=== PATIENT | female | born 1965 | race Caucasian/White ===

== ENCOUNTER → 2018-02-26 10:45 | Outpatient (CLI) | payer OTHER, SELFPAY ==
--- NOTE | 2018-02-26 10:48 | XR_ITS ---
XR hip RT 2-3V w/pelvis HISTORY: ITS.REASON: Hip pain ORDERING PHYSICIAN: Ciro Bernardo MD PATIENT AGE: 52 years COMPARISON: None FINDINGS: No fracture or dislocation is evident. There are minimal osteoarthritic changes of the right hip. No lytic or blastic change. IMPRESSION: Mild osteoarthritis of the right hip
== END ==
PROVIDERS: PCP Emergency Medicine; Visit Provider Emergency Medicine
DX: M25.551 Pain in right hip (principal); N39.0 Urinary tract infection, site not specified
CPT/HCPCS: 73502; 87086

== ENCOUNTER → 2018-03-10 10:07 | Outpatient (CLI) | payer OTHER, SELFPAY ==
[2018-03-10 14:03] VITALS: PULSE 93; PULSE 96
== END ==
PROVIDERS: PCP Emergency Medicine; Visit Provider Emergency Medicine
DX: J45.909 Unspecified asthma, uncomplicated (principal)
CPT/HCPCS: 94060; 94640

== ENCOUNTER → 2022-08-08 14:41 | Outpatient (CLI) | payer OTHER, SELFPAY ==
[2022-08-08 18:25] LABS: Basophils # 0.1 K/mm3 (0-0.2); Basophils % 0.7 % (0.1-2.0); Eosinophils # 0.8 K/mm3 (0.0-0.4); Eosinophils % 7.1 % (0.1-12.0); Hematocrit 47.4 % (37.0-47.0); Hemoglobin 14.4 g/dL (12.2-16.2); Lymphocytes # 2.5 K/mm3 (0.7-4.5); Lymphocytes % 22.2 % (10-50); Mean Corpuscular HGB Conc 30.3 g/dL (31.8-35.4); Mean Corpuscular Hemoglobin 29.1 pg (27.0-31.2); Mean Platelet Volume 9.7 fl (7.4-10.4); Monocytes # 0.5 K/mm3 (0.1-1.0); Monocytes % 4.1 % (1.7-9.3); Neutrophils # 7.4 K/mm3 (1.8-7.8); Neutrophils % 65.9 % (37.0-80.0); Platelet Count 342 K/mm3 (142-424); Red Blood Count 4.93 M/mm3 (4.20-5.40); Red Cell Distribution Width 13.8 % (11.5-17.5); White Blood Count 11.3 K/mm3 (4.8-10.8)
[2022-08-08 18:30] LABS: Alanine Aminotransferase 20 U/L (12-78); Albumin Level 4.5 g/dl (3.5-5.0); Albumin/Globulin Ratio 1.6 (1.1-1.8); Alkaline Phosphatase 95 U/L (38-126); Anion Gap 17.5 mEq/L (5-15); Aspartate Amino Transferase 28 U/L (14-36); Bilirubin,Total 0.4 mg/dl (0.2-1.3); Blood Urea Nitrogen 13 mg/dl (7-17); Calcium 9.4 mg/dl (8.4-10.2); Carbon Dioxide 30 mmol/L (22.0-30.0); Chloride 90 mmol/L (98-107); Chol/HDL Ratio 6.8 (1-3.5); Cholesterol 293 mg/dl (140-200); Estimated Glomerular Filt Rate 57 ml/min (>60); GFR (African American) 69 ML/MIN (>60); Globulin 2.8 g/dL (1.3-3.2); Glucose 120 mg/dl (74-100); HDL Cholesterol 43 mg/dl (40-60); Potassium 4.5 mmoL/L (3.5-5.1); Sodium 133 mmol/L (136-145); Total Protein,Serum 7.3 g/dl (6.3-8.2); Triglycerides 351 mg/dl (30-150); VLDL Cholesterol 70 mg/dL (0-40)
[2022-08-08 18:40] LABS: Direct LDL Cholesterol 155.73 mg/dL (100-129)
[2022-08-08 18:46] LABS: Free T4 (Free Thyroxine) 1.27 ng/dl (0.78-2.19)
[2022-08-08 18:48] LABS: 25-OH Vitamin D, Total < 12.8 ng/mL (30-100)
[2022-08-08 19:00] LABS: Thyroid Stimulating Hormone 1.78 uIU/mL (0.465-4.68)
== END ==
PROVIDERS: PCP Emergency Medicine; Visit Provider Emergency Medicine
DX: N39.0 Urinary tract infection, site not specified (principal); E55.9 Vitamin D deficiency, unspecified; E66.9 Obesity, unspecified; Z68.32 Body mass index [BMI] 32.0-32.9, adult
CPT/HCPCS: 80053; 80061; 82306; 84439; 84443; 85025; 87086

== ENCOUNTER → 2022-08-24 12:32 | Outpatient (CLI) | payer OTHER, SELFPAY ==
--- NOTE | 2022-08-24 | CA_ITS ---
APPROVED REPORT Exam: Pharmacologic Technologist: Britany Everett, Ht: 5 ft 4 in Wt: 192 lbs BSA: 1.92 m2 HR: 49 bpm BP: 124/66 mmHg Rhythm: Sinus bradycardia Medical History Medications: Amlodipine,,,,, Lisinopril,,,,, Pantoprazole,,,,, Atorvastatin,,,,, Albuterol,,,,, Cetrizine,,,,, BREo,,,,, CHlorALIDONE,,,,, BuPROPRION,,,,, Cardiac Risk Factors: HTN, Hyperlipidemia, Diabetes (non-insulin) Stress Test Details Test: LEXISCAN HR Resting HR: 49 bpm Max Heart Rate (APMHR): 164 bpm Max HR Achieved: 86 bpm Target HR (85% APMHR): 139 bpm % of APMHR: 52 Recovery HR: 69 bpm BP Max BP: 138/68 mmHg Recovery BP: 114.0/63.0 mmHg ECG Resting ECG: Sinus bradycardia, nonspecific diffuse T wave changes Stress ECG: No change Arrhythmia: None Recovery ECG: No change Recovery Arrhythmia: None Clinical Exercise duration: 04:10 min Highest Stage Achieved: Exercise capacity: n/a METs Stress ECG Conclusion During lexiscan pt experinced SOA, mild SANTANA. No CP noted. No arrhythmias noted. No significant ST changes with stress. Unremarkable lexiscan stress. Myoview images reported separately. Test Summary REST . . . . . . . Sitting REST . . . . . . . Sitting REST 07:41 . . 49 . . . . Stage 1 . . . . . . . Myoview Injected Stage 1 01:00 . . 81 . . . . Stage 2 01:00 . . 79 . 122/ 77 . . Stage 3 01:00 . . 77 . 138/ 68 . . Stage 4 01:00 . . 74 . 133/ 62 . . Stage 4 01:10 . . 77 . 133/ 62 . Stop exercise at 04:10 RECOVERY 01:00 . . 69 . . . . RECOVERY 02:00 . . 68 . 114/ 63 . . RECOVERY 03:00 . . 65 . 114/ 63 . . RECOVERY 04:00 . . 71 . 127/ 75 . . RECOVERY 04:24 . . 64 . 127/ 75 . . Electronically signed by : Bethanie Jc, 08/27/2022 00:54:24
--- NOTE | 2022-08-24 12:32 | NM_ITS ---
APPROVED REPORT Exam: Nuclear Stress Test Indication: CAD, 2 STENTS, H/O [place], HTN, HYPERLIPIDEMIA, TOB USE, FM HX., SOB, FATIGUE Patient Location: Outpatient Stress Tech: Jeanette Everett NM Tech:Melly Levy, LYNNETTE RT(R)(N) Ht: 5 ft 4 in Wt: 190 lbs Bra Size: 38C HR: 49 bpm BP: 122/77 mmHg BSA: 1.91 m2 TID: 0.96 BMI: 32.6 History: CAD, 2 STENTS, H/O [place], HTN, HYPERLIPIDEMIA, TOB USE, FM HX., SOB, FATIGUE PT COULD NOT LAY ON STOMACH FOR PRONE IMAGES DUE TO A PRIOR STROKE. Procedure: Patient received 0.0 mg of intravenous Lexiscan, resting heart rate 49 bpm, resting blood pressure 122/77 mmHg, with Lexiscan maximum heart rate achieved was 81 bpm which is % of the maximum predicted heart rate and blood pressure was 138/68 mmHg. With Lexiscan, patient denied any complaint of chest pain. Cardiac Stress and Resting SPECT Images: Cardiac Stress and Resting SPECT images were obtained using technetium 99m Myoview 31.9 mCi stress and 10.25 mCi at rest. The study is technically difficult due to soft tissue overlying the cardiac border on the raw images. Also, the patient was not able to lie on her abdomen for prone imaging. Therefore prone stress imaging could not be obtained. This may affect the diagnostic interpretation of the study findings. Resting and stress imaging in supine position demonstrate medium sized, mild, fixed perfusion defect in the basal to mid anterior wall. In the setting of normal regional wall motion and overlying soft tissue in the raw images, this most likely represents soft tissue attenuation. However, a true perfusion defect cannot be entirely ruled out. Gated imaging demonstrates normal global and regional LV systolic function. LVEF is calculated at 64%. Conclusion: The study is technically difficult due to soft tissue overlying the cardiac border on the raw images. Also, the patient was not able to lie on her abdomen for prone imaging. Therefore prone stress imaging could not be obtained. This may affect the diagnostic interpretation of the study findings. Resting and stress imaging in supine position demonstrate medium sized, mild, fixed perfusion defect in the basal to mid anterior wall. In the setting of normal regional wall motion and overlying soft tissue in the raw images, this most likely represents soft tissue attenuation. However, a true perfusion defect cannot be entirely ruled out. Gated imaging demonstrates normal global and regional LV systolic function. LVEF is calculated at 64%. Electronically signed by : Bethanie Jc, 08/27/2022 01:05:07
--- NOTE | 2022-08-24 15:26 | MR_ITS ---
FINAL REPORT CLINICAL HISTORY: neck pain. LEFT ARM NUMBNESS AND TINGLING. HEADACHE COMPARISON: None FINDINGS: Multiplanar MR imaging of the cervical spine was performed without contrast. On the sagittal T2-weighted images, disc degeneration is seen throughout. There is no evidence of fracture. The vertebral alignment is normal. The cervical spinal cord has an unremarkable appearance without evidence of mass, edema or syrinx. The cervicomedullary junction is normal. C2-3: Uncovertebral osteophytes. There is no significant canal stenosis or neural foraminal narrowing. C3-4: Uncovertebral osteophytes. Mild right neuroforaminal narrowing. C4-5: Annular disc bulge. Moderate right neuroforaminal narrowing. C5-6: Annular disc bulge. Mild bilateral neuroforaminal narrowing. C6-7: Annular disc bulge. Moderate right and mild left neuroforaminal narrowing. C7-T1: There is no significant canal stenosis or neural foraminal narrowing. IMPRESSION: Multilevel degenerative disc disease as described. Reviewed, Interpreted and Dictated by Ascencion Griffith III, MD Transcribed by Nikky Montemayor Authenticated and [facility]
== END ==
LOC: RAD 12:32
PROVIDERS: PCP Emergency Medicine; Visit Provider Nurse Practitioner Family
DX: R06.09 Other forms of dyspnea (principal); R01.1 Cardiac murmur, unspecified; M54.2 Cervicalgia; I25.10 Atherosclerotic heart disease of native coronary artery without angina pectoris; I10 Essential (primary) hypertension; E66.9 Obesity, unspecified; E78.5 Hyperlipidemia, unspecified; I63.9 Cerebral infarction, unspecified; Z72.0 Tobacco use; Z68.32 Body mass index [BMI] 32.0-32.9, adult
CPT/HCPCS: 72141; 76376; 78452; 93017; 93306; A9502; J2785

== ENCOUNTER → 2022-09-05 13:30 | Outpatient (CLI) | payer OTHER, SELFPAY ==
[2022-09-05 17:05] LABS: Chloride 103 mmol/L (98-107)
[2022-09-05 17:06] LABS: Potassium 4.1 mmoL/L (3.5-5.1); Sodium 140 mmol/L (136-145)
[2022-09-05 17:09] LABS: Anion Gap 7.1 mEq/L (5-15); Blood Urea Nitrogen 8 mg/dl (7-17); Carbon Dioxide 34 mmol/L (22.0-30.0); Estimated Glomerular Filt Rate 65 ml/min (>60); GFR (African American) 78 ML/MIN (>60); Glucose 94 mg/dl (74-100)
== END ==
PROVIDERS: Nurse Practitioner; PCP Emergency Medicine; Visit Provider Emergency Medicine
DX: R06.09 Other forms of dyspnea (principal); I25.10 Atherosclerotic heart disease of native coronary artery without angina pectoris; I63.9 Cerebral infarction, unspecified; R82.90 Unspecified abnormal findings in urine; B96.29 Other Escherichia coli [E. coli] as the cause of diseases classified elsewhere; E66.9 Obesity, unspecified; Z68.34 Body mass index [BMI] 34.0-34.9, adult; Z72.0 Tobacco use
CPT/HCPCS: 36415; 80048; 87086; 87088; 87186

== ENCOUNTER → 2022-09-14 09:30 | Outpatient (CLI) | payer OTHER, SELFPAY ==
--- NOTE | 2022-09-14 09:35 | XR_ITS ---
FINAL REPORT TECHNIQUE: Bone mineral density was calculated of the lumbar spine and hip. CLINICAL HISTORY: . osteophytes in lumbar area FINDINGS: Using L1-4, the bone mineral density of the spine is 1.019 g/cm2, corresponding to T-score of -0.3, likely falsely elevated secondary to hypertrophic changes. Using the left hip, the bone mineral density of the femoral neck is 0.743 g/cm2, corresponding to a T-score of -1.0. Using the right hip, the bone mineral density of the femoral neck is 0.696 g/cm2, corresponding to a T-score of -1.4. NOTE: T-score: Standard deviation compared with peak bone mass of young adult mean. *Following the recommendations of the International Society of Bone densitometry, classification of hip BMD is based on the lower of two T-scores; total hip or femoral neck. IMPRESSION: Diminished bone mineral density consistent with low bone density. FRAX was not reported because patient is being treated for osteoporosis. Reviewed, Interpreted and Dictated by Ascencion Griffith III, MD Transcribed by Radha Medina Authenticated and [facility]
== END ==
PROVIDERS: PCP Emergency Medicine; Visit Provider Physician Assistant
DX: M25.78 Osteophyte, vertebrae (principal); M51.36 Other intervertebral disc degeneration, lumbar region
CPT/HCPCS: 77080

== ENCOUNTER → 2022-09-19 10:04 | Outpatient (CLI) | payer OTHER, SELFPAY ==
[2022-09-19 10:55] VITALS: PULSE 64; PULSE 69
--- NOTE | 2022-09-19 13:55 | XR_ITS ---
FINAL REPORT CLINICAL HISTORY: LBP FINDINGS: LUMBAR SPINE Five views demonstrate no acute fracture. There are mild degenerative changes. There is mild anterolisthesis of L4 on 5. Moderate vascular calcification is identified. IMPRESSION: Degenerative changes as detailed above. Reviewed, Interpreted and Dictated by Ascencion Griffith III, MD Transcribed by Radha Medina Authenticated and [facility]
== END ==
PROVIDERS: PCP Emergency Medicine; Visit Provider Internal Medicine Pulmonary Disease
DX: R06.02 Shortness of breath (principal); M54.50 Low back pain, unspecified
CPT/HCPCS: 72110; 94060; 94618; 94640; 94727; 94729

== ENCOUNTER → 2022-09-19 13:00 | Outpatient (POV) | payer OTHER, SELFPAY ==
[2022-09-19 13:08] VITALS: BP 158/77; PULSE 74; RESP 20; BMI 36.3
--- NOTE | 2022-09-19 14:44 | EXP.PAIN.OV ---
HPI Data of Consult Patient: new to practice Consult date: 09/19/22 Requesting Physician: Vee Ojeda APRN Consult Narrative Reason for consult: Low back pain with lower extremity pain, neck pain with upper extremity markus History of present illness: Ms. Nolen is a 56 year old female who presents today as a new patient. She is a referral from Dr. Bernardo's office. Today she rates her pain a 0 out of 10. She does state this is while she is in a seated position but the pain does go up to a 6 or 7 when she is up moving around and as the day goes on. Patient states her pain is all in her low back and legs as well as chronic pain in her neck and upper extremities. Patient does describe her pain as a aching sensation with sharp shooting pains that is worse with increased activity. Patient does state that her low back pain has been going on for at least 8 months and is unrelated to any specific injury or trauma. She does state that her low back pain and leg pain is more bothersome than her neck pain. She states it does interfere with her ability to perform activities of daily living such as cooking and cleaning. Patient states she has tried [id number] medications such as Tylenol and ibuprofen along with heat and ice and topicals with minimal relief. Patient denies any previous physical therapy or chiropractor. Patient has been seen in pain management in [place] years ago and that the injections did help. Patient does state that she does have a history of drug abuse and is currently in a drug rehab program and is on methadone. Patient is not on any scheduled medications. Patient has had recent MRI imaging of her cervical spine however she denies any other imaging of her low back. Her Herbert is [phone]. It has been reviewed and appropriate. CC: Vee Ojeda APRN [facility] Disclaimer: The information contained in this section may have been updated after the patient was seen, as this information can be updated by other users. Medical History COPD mixed type DDD (degenerative disc disease), lumbar Dyspnea on exertion Encounter for screening for malignant neoplasm of lung Smoking greater than 30 pack years Surgical History History of heart artery stent History of surgery on lower extremity Family History Other Diabetes Hypertension Social History (Updated 09/19/22 @ 13:57 by Rachel Rahman RN) Smoking Status: Current every day smoker tobacco type: cigarettes packs per day: 1 alcohol intake: current substance use type: denies use current occupational status: disabled Travel in the last 8 weeks: None Review of Systems Review of Systems Review of systems:: pertinent systems reviewed and negative unless documented below Review of systems (narrative): Review of Systems: General: No recent weight changes, no fever, no sleep disturbances Respiratory: No cough, no shortness of air, no recurring pulmonary infections Cardiovascular/peripheral vascular: No chest pain, no palpitations, no edema, no shortness of breath Gastrointestinal: No new onset incontinence, normal bowel movements reported Genitourinary: No new onset incontinence Musculoskeletal: Low back pain, bilateral lower extremity pain, neck pain, bilateral arm pain Psychiatric: [Normal mood/affect] Neurological: [Denies weakness in extremities], [denies balance issues] Meds Home Medications and Allergies Home Medications Medication Instructions Recorded Confirmed Type fluticasone furoate 100 See Rx Instructions .Route 10/09/19 09/05/22 Rx mcg-vilanterol 25 mcg/dose .COMPLEX ##60 inhalation powder (Breo Ellipta) amlodipine 5 mg tablet 5 mg PO DAILY 07/04/22 09/05/22 History atorvastatin 80 mg tablet 80 mg PO HS 07/04/22 09/05/22 History bupropion HCl 150 mg tablet,12 hr 150 mg PO BID #60 ea 07/04/22 09/05/22 Rx sustained-release ce
== END ==
PROVIDERS: Visit Provider Nurse Practitioner Family
DX: M50.10 Cervical disc disorder with radiculopathy, unspecified cervical region (principal); M54.16 Radiculopathy, lumbar region; M54.50 Low back pain, unspecified; G89.29 Other chronic pain
CPT/HCPCS: 99202; G0463

== ENCOUNTER → 2022-10-04 15:27 | Outpatient (CLI) | payer OTHER, SELFPAY ==
--- NOTE | 2022-10-04 16:03 | MR_ITS ---
PROCEDURE INFORMATION: Exam: MR Lumbar Spine Without Contrast Exam date and time: 10/04/2022 4:00 PM Age: 56 years old Clinical indication: Low back pain; Additional info: Low back pain. Bilateral leg pain, numbness and tingling. Right sided low back pain TECHNIQUE: Imaging protocol: Magnetic resonance imaging of the lumbar spine without contrast. COMPARISON: CR XR LUMBAR SPINE MIN 4V 09/19/2022 1:57 PM FINDINGS: Bones/joints: Minimal anterolisthesis L4 on L5 measuring 2 mm is unchanged with otherwise near anatomic alignment. The vertebral body heights are maintained there are multiple Schmorl's nodes present in the lower thoracic and lumbar spine without significant loss of height. No suspicious marrow signal. Spinal cord: Visualized cord, conus medullaris and cauda equina are unremarkable without compression. T11-T12: T11-12 minimal diffuse disc bulging is seen with mild stenosis of the spinal canal on the sagittal images only. L1-L2: No significant disc bulge or herniation. No severe spinal canal stenosis. No significant neural foraminal narrowing. L2-L3: L2-L3 mild saddle shaped disc bulging is present with patent spinal canal. The neural foramina are mildly narrowed on both sides. L3-L4: L3-L4 mild saddle shaped disc bulging is seen without stenosis of the spinal canal. There is mild narrowing of both neural foramina present. L4-L5: L4-L5 diffuse disc bulging and degenerative facet arthrosis is present with mild stenosis of the spinal canal. There is moderate left and mild right neural foraminal narrowing also present. L5-S1: L5-S1 minimal diffuse disc bulging eccentric to the right is present without stenosis of the spinal canal. There is degenerative facet arthrosis with mild narrowing of the left neural foramen. Soft tissues: Unremarkable. Kidneys and ureters: Simple cyst upper pole left kidney measuring 1.0 cm. IMPRESSION: Multilevel degenerative disc disease with mild stenosis of the spinal canal at L4-L5, as described.
[2022-10-04 18:16] LABS: Vitamin B12 272 pg/mL (239-931)
[2022-10-04 18:31] LABS: Hemoglobin A1C 5.8 % (4.0-6.0)
== END ==
LOC: RAD 15:28
PROVIDERS: Nurse Practitioner Family; PCP Emergency Medicine; Visit Provider Nurse Practitioner Family
DX: M54.50 Low back pain, unspecified (principal); I25.10 Atherosclerotic heart disease of native coronary artery without angina pectoris; I25.2 Old myocardial infarction; I10 Essential (primary) hypertension; E78.5 Hyperlipidemia, unspecified; E66.9 Obesity, unspecified; R53.83 Other fatigue; R73.9 Hyperglycemia, unspecified; Z72.0 Tobacco use; Z68.35 Body mass index [BMI] 35.0-35.9, adult
CPT/HCPCS: 36415; 72148; 76376; 82607; 82746; 83036; 93270

== ENCOUNTER → 2022-10-08 13:20 | Outpatient (CLI) | payer OTHER, SELFPAY ==
[2022-10-17 08:20] LABS: Methylmalonic Acid 265 nmol/L (0-378)
== END ==
PROVIDERS: PCP Emergency Medicine; Visit Provider Nurse Practitioner Family
DX: E53.8 Deficiency of other specified B group vitamins (principal); R53.83 Other fatigue
CPT/HCPCS: 36415; 83090; 83921

== ENCOUNTER → 2022-10-11 13:32 | Outpatient (CLI) | payer OTHER, SELFPAY ==
[2022-10-11 14:04] LABS: Blood Urea Nitrogen 11 mg/dl (7-17); Estimated Glomerular Filt Rate 57 ml/min (>60); GFR (African American) 69 ML/MIN (>60)
--- NOTE | 2022-10-11 14:48 | MR_ITS ---
FINAL REPORT CLINICAL HISTORY: carotid artery stenosis COMPARISON: None FINDINGS: Multiple projection images of the neck arterial vasculature were obtained without contrast. The raw data images were also reviewed. The right common carotid artery has an unremarkable appearance without evidence of stenosis or occlusion. The right internal carotid artery has an unremarkable appearance without evidence of stenosis or occlusion. The right external carotid artery is patent. The right vertebral artery is patent without evidence of stenosis. The right vertebral artery is the dominant artery in the posterior circulation. The left common carotid artery has an unremarkable appearance without evidence of stenosis or occlusion. The left internal carotid artery is patent without evidence of stenosis or occlusion. The left external carotid artery is patent. The left vertebral artery is patent but diminutive. IMPRESSION: Unremarkable MR angiogram of the neck without evidence of stenosis or occlusion. Reviewed, Interpreted and Dictated by José Waggoner MD Transcribed by Raisa Sanches Authenticated and [facility]
--- NOTE | 2022-10-11 14:48 | MR_ITS ---
FINAL REPORT CLINICAL HISTORY: dizziness,confusion 17 ml prohance COMPARISON: None FINDINGS: Multiplanar MR imaging of the brain was performed without and with contrast. There is encephalomalacia in the right posterior parietal region, likely secondary to prior ischemic infarct. No enhancement or mass is identified. There are areas of increased signal in the periventricular white matter, compatible with ischemic microvascular change. There is no evidence of intracranial hemorrhage or mass. No abnormal extra-axial fluid collection is seen. The ventricular size is within normal limits. There is no evidence of shift of the midline structures. The posterior fossa and brainstem have an unremarkable appearance. No area of abnormal restricted diffusion is identified. No abnormal contrast enhancement is seen. Normal major vessel vascular flow voids are noted. IMPRESSION: Encephalomalacia in the right posterior parietal region, likely secondary to a prior ischemic infarct. Changes compatible with mild to moderate ischemic microvascular disease. Reviewed, Interpreted and Dictated by José Waggoner MD Transcribed by Raisa Sanches Authenticated and . [facility]
--- NOTE | 2022-10-11 14:48 | MR_ITS ---
FINAL REPORT CLINICAL HISTORY: carotid artery stenosis COMPARISON: None FINDINGS: Multiple projection images of the brain arterial vasculature were obtained without contrast. raw data images were also reviewed. The internal carotid arteries are patent. The middle cerebral arteries and visualized proximal branches are patent. The anterior cerebral arteries are patent. The intracranial vertebral arteries are patent. The basilar artery is patent. The posterior cerebral arteries are patent. Note is made of a diminutive left vertebral artery and a dominant right vertebral artery. IMPRESSION: No major vessel occlusion. Reviewed, Interpreted and Dictated by José Waggoner MD Transcribed by Raisa Sanches Authenticated and [facility]
== END ==
LOC: RAD 13:33
PROVIDERS: PCP Emergency Medicine; Visit Provider Nurse Practitioner Family
DX: I25.10 Atherosclerotic heart disease of native coronary artery without angina pectoris (principal); I10 Essential (primary) hypertension; I25.2 Old myocardial infarction; I63.9 Cerebral infarction, unspecified; R73.9 Hyperglycemia, unspecified; E78.5 Hyperlipidemia, unspecified; R53.83 Other fatigue; I65.23 Occlusion and stenosis of bilateral carotid arteries; G47.8 Other sleep disorders; R06.83 Snoring; E66.9 Obesity, unspecified; Z68.35 Body mass index [BMI] 35.0-35.9, adult; Z72.0 Tobacco use
CPT/HCPCS: 36415; 70544; 70547; 70553; 82565; 84520; A9576

== ENCOUNTER → 2022-10-26 08:48 | Outpatient (CLI) | payer OTHER, SELFPAY ==
--- NOTE | 2022-10-26 08:48 | FL_ITS ---
FINAL REPORT CLINICAL HISTORY: breathing problems DAP 342.23 Fluoro time 0.49 FINDINGS: SNIFF TEST HISTORY: Shortness of breath, diaphragm weakness, nicotine user. PROCEDURE: Fluoroscopy was utilized to observe the motion of the hemidiaphragms during normal respirations and while the patient was sniffing. FINDINGS: There is normal motion of both hemidiaphragms. There is no paradoxical movement of either side of the diaphragm. A total of 5 cine runs were saved. FLUOROSCOPY TIME: 0.49 minutes FLUORO DOSE: 342.23 DAP in uGym2 IMPRESSION: No paradoxical movement of the diaphragm. Reviewed, Interpreted and Dictated by Ascencion Griffith III, MD Transcribed by Catherine Ramírez PA-C Authenticated and [facility]
--- NOTE | 2022-10-26 08:48 | CT_ITS ---
FINAL REPORT TECHNIQUE: Axial images were obtained from the lung apex to the mid abdomen by computed tomography. This study was performed with techniques to keep radiation doses as low as reasonably achievable (ALARA). Individualized dose reduction techniques using automated exposure control or adjustment of mA and/or kV according to the patient's size were employed. CLINICAL HISTORY: lung cancer screening smokes 1/2 pk per day x 35 yrs empysema family hx of lung ca FINDINGS: CHEST CT LOW DOSE CTDI vol (mGy): 2.90 DLP (mGy-cm): 108.64 There is severe coronary artery calcification. There is no axillary adenopathy. There is no hilar or mediastinal adenopathy. The heart is normal in size. There is no pericardial or pleural effusion. There are several calcified granulomas. There is a 3 mm left lower lobe nodule well seen on image 47. Limited images of the upper abdomen are unremarkable. IMPRESSION: Left lower lobe nodule. Severe coronary artery calcification. Lung RADS category 2S. Recommend 12 month follow-up low-dose chest CT. Reviewed, Interpreted and Dictated by Ascencion Griffith III, MD Transcribed by Radha Medina Authenticated and [facility]
== END ==
PROVIDERS: PCP Emergency Medicine; Visit Provider Internal Medicine Pulmonary Disease
DX: J98.6 Disorders of diaphragm (principal); F17.210 Nicotine dependence, cigarettes, uncomplicated
CPT/HCPCS: 71271; 76000

== ENCOUNTER → 2023-01-09 13:08 | Outpatient (POV) | payer OTHER, SELFPAY ==
[2023-01-09 13:21] VITALS: BP 131/79; PULSE 70; RESP 18; O2SAT 96; BMI 35.3
--- NOTE | 2023-01-09 13:23 | EXP.PAIN.SOA ---
[facility] Pain Management SOAP Note Subjective:: Patient is a pleasant 57-year-old female who presents today for follow-up. We are currently treating the patient for degenerative disc disease of cervical and lumbar spine with cervical and lumbar radiculopathy symptoms, cervical and lumbar arthropathy. Today she rates her pain a 5 out of 10. Patient denies any new trauma or injury from her last visit. Patient states that she continues to have neck and low back pain with radiating symptoms. She states the low back is more bothersome than the neck pain. She does describe this as an aching, throbbing sensation with sharp shooting pains. She states the pain interferes with her ability perform activities of daily living such as cooking and cleaning. At our last visit we did discuss scheduling her for a lumbar epidural however she did not proceed forward with the injection at that time. Patient would like to do this now. Patient has tried and failed conservative therapy such as oral medication, heat and ice, topicals, at home exercising and stretching for longer than 12 weeks. Patient does state from our last visit her vascular Dr. Lincoln in [place] did start her on Eliquis daily. Her Herbert has been reviewed and is appropriate. Review of Systems: General: No recent weight changes, no fever, no sleep disturbances Respiratory: No cough, no shortness of air, no recurring pulmonary infections Cardiovascular/peripheral vascular: No chest pain, no palpitations, no edema, no shortness of breath Gastrointestinal: No new onset incontinence, normal bowel movements reported Genitourinary: No new onset incontinence Musculoskeletal: Low back pain, leg pain Psychiatric: [Normal mood/affect] Neurological: [Denies weakness in extremities], [denies balance issues] Objective:: Physical Exam: General: Alert and oriented x3, no acute distress, pleasant and cooperative Lungs: Respirations even and unlabored, symmetrical chest expansion Eyes: PERRL Musculoskeletal: Flexion and extension of lumbar [spine] somewhat guarded secondary to pain, [antalgic gait noted] Neurological: Speech clear, no gross sensory deficit Lumbar MRI without contrast 07/03/2022 Findings: Multiplanar MR imaging of the lumbar spine was performed without contrast. On sagittal T2 weighted images, disc degeneration is seen multiple levels. There is mild anterior listhesis of L4 on L5. Schmorl's nodes are seen at multiple levels. There is no evidence of fracture. No bony mass is identified. The conus is unremarkable appearance. T12-L1: Unremarkable. L1-L2: An annular bulge is present no significant canal or foraminal narrowing is identified. L 2 through L3: An annular bulge is present. There is mild facet arthropathy. Mild bilateral neuroforaminal narrowing is seen. L3-L4: An annular bulge is present. There is mild facet arthropathy. Moderate right and mild left neuroforaminal narrowing is seen. L4-L5: An annular bulge is present. A broad-based left paracentral disc protrusion mildly indents the thecal sac and may cause left L5 nerve root impingement. There is bilateral facet arthropathy. Moderate bilateral neuroforaminal narrowing is seen. L5-S1: An annular bulge is present. There is mild facet arthropathy. Mild bilateral neuroforaminal narrowing is seen. Assessment:: Degenerative disc disease of cervical and lumbar spine with cervical and lumbar radiculopathy symptoms, cervical and lumbar arthropathy Plan:: Patient continues to experience significant pain in her low back with radiating symptoms into her lower extremities. I have discussed with the patient that she may benefit from a lumbar epidural steroid injection. Risk and benefits were discussed with the patient and she would like to proceed forward with this plan of care. Patient is currently on blood thinners and we will contact her provider to confirm she can stop this medication temporarily prior to her procedure date. Patient will be schedu
== END ==
PROVIDERS: PCP Emergency Medicine; Visit Provider Nurse Practitioner Family
DX: M50.10 Cervical disc disorder with radiculopathy, unspecified cervical region (principal); M47.22 Other spondylosis with radiculopathy, cervical region; M51.16 Intervertebral disc disorders with radiculopathy, lumbar region; M47.26 Other spondylosis with radiculopathy, lumbar region
CPT/HCPCS: 99212; G0463

== ENCOUNTER 2023-02-19 08:13 | Day surgery (SDC) | payer OTHER, SELFPAY ==
[2023-02-19] VITALS (15 sets, daily range): BP systolic 120–177; BP diastolic 65–100; PULSE 52–84; RESP 16–18; TEMP 36.6; O2SAT 90–99; BMI 35.1
--- NOTE | 2023-02-19 08:26 | IR_ITS ---
APPROVED REPORT Patient Location: Outpatient PROCEDURES Selective coronary angiogram Drug-eluting stent deployment to the ostial proximal mid and distal dominant right coronary artery in a contiguous manner with 4 drug-eluting stents INDICATION Coronary artery disease, Abnormal Myoview, Accelerated angina pectoris Informed consent was obtained prior to the procedure. COMPLICATIONS NONE Estimated Blood Loss: LESS THAN 10 ML TECHNIQUE One percent lidocaine used to anesthetize the right anterior aspect of the wrist. The right radial artery was accessed via the Seldinger technique. A 6 [place] sheath was placed in the right radial artery. 2.5 mg of Verapamil, 800 mcg of nitroglycerin, 1mg Lidocaine and 5000 U Heparin were given through the arterial sheath. The papa catheter was also used to perform left heart catheterization, left ventriculogram and selective coronary angiogram. At the end the diagnostic angiogram therapeutic heparin was administered giving a therapeutic ACT and the guide catheter was placed in the right coronary artery followed by Choice PT extra-support wire. Two 3 mm x 38 mm [place] frontier stents were placed in the proximal mid and distal segment in a contiguous manner and deployed at 20 clem.. An additional 3 mm x 15 mm [place] frontier stent was placed distal to the last stent yet still overlapping it and deployed at 14 clem. The distal portion of the 15 mm stent ended just prior to the posterior descending artery and posterior lateral branch. This balloon was pulled back and deployed at 20 clem to mesh the distal 38 mm stent with the 15 mm stent. Following this an additional 3 mm x 12 mm [place] frontier stent was placed in the ostial segment of the right coronary artery as the pressure continued to dampen each time the guide catheter approach to the ostium indicating a severe stenosis. The 12 mm stent was deployed in the ostial segment which overlapped the proximal portion of the first 3 x 38 mm stent. This was deployed at 24 clem. Upon delivery of the last ostial stent all dampening resolved. ALONSO-3 flow was present before and after the procedure. At the end the procedure the apparatus was removed the sheath was removed good hemostasis was achieved using TR banding patient was transferred to the postop holding in stable condition ANGIOGRAPHIC RESULTS The left main artery Normal The left anterior descending artery Is proximally normal with mid vessel diffuse 10% stenoses throughout. The circumflex artery Is nondominant has a stent in the proximal segment which is widely patent free of in-stent restenosis. A large first obtuse marginal artery is widely patent with ALONSO-3 flow despite being jailed by the circumflex artery stent The right coronary artery Is a dominant vessel and has an ostial 70% stenosis followed by proximal 50 and 70% stenoses with mid vessel 50% stenoses and distal 70% stenosis immediately proximal to the posterior descending artery and posterior lateral The RENAE ventriculogram reveals Not performed The left ventricular end-diastolic pressure Not measured IMPRESSION Severe disease throughout the right coronary as described above Successful reconstruction of the ostial proximal mid distal dominant right coronary severe disease reduced to 0% with 4 contiguous drug-eluting stents PLAN 1. Dual antiplatelet therapy 2. Cardiac rehabilitation 3. Avoidance of tobacco products 4. Risk factor modification 5. LDL less than 55 to be achieved with high intensity statin Electronically signed by : Farshad Winter MD 02/19/2023 16:51:03
[2023-02-19 09:05] LABS: Basophils # 0.1 K/mm3 (0-0.2); Eosinophils # 0.3 K/mm3 (0.0-0.4); Eosinophils % 3.5 % (0.1-12.0); Hematocrit 45.7 % (37.0-47.0); Hemoglobin 14.9 g/dL (12.2-16.2); Lymphocytes # 2.9 K/mm3 (0.7-4.5); Lymphocytes % 37.9 % (10-50); Mean Corpuscular HGB Conc 32.5 g/dL (31.8-35.4); Mean Corpuscular Hemoglobin 30.4 pg (27.0-31.2); Mean Corpuscular Volume 93.6 fl (81-99); Mean Platelet Volume 8.6 fl (7.4-10.4); Monocytes # 0.4 K/mm3 (0.1-1.0); Monocytes % 4.8 % (1.7-9.3); Neutrophils % 52.9 % (37.0-80.0); Platelet Count 283 K/mm3 (142-424); Red Blood Count 4.88 M/mm3 (4.20-5.40); Red Cell Distribution Width 13.9 % (11.5-17.5); White Blood Count 7.5 K/mm3 (4.8-10.8)
[2023-02-19 09:07] LABS: Chloride 102 mmol/L (98-107); Potassium 3.9 mmoL/L (3.5-5.1); Sodium 140 mmol/L (136-145)
[2023-02-19 09:10] LABS: Anion Gap 10.9 mEq/L (5-15); Blood Urea Nitrogen 11 mg/dl (7-17); Calcium 8.8 mg/dl (8.4-10.2); Carbon Dioxide 31 mmol/L (22.0-30.0); Creatinine Clearance Estimated 95 mL/min (50-200); Estimated Glomerular Filt Rate 65 ml/min (>60); GFR (African American) 78 ML/MIN (>60); Glucose 99 mg/dl (74-100)
[2023-02-19] MEDS: HEPARIN 1,000 UNITS/500ML NS (CATH LAB) 3000 UNIT IV (09:37)
[2023-02-19] MEDS: 0.9 % SODIUM CHLORIDE 500 ML 25 ML IV (09:37)
[2023-02-19] MEDS: HEPARIN 1,000 UNITS/ML 10ML VIAL (CATH LAB) 10000 UNIT IV ×2 (09:38→10:15)
[2023-02-19] MEDS: diphenhydrAMINE 50MG/ML VIAL 50 MG IV (09:38)
[2023-02-19] MEDS: VERAPAMIL 2.5MG/ML 2ML VIAL 2.5 MG IV (09:38)
[2023-02-19] MEDS: NITROGLYCERIN 800MCG/8ML SYR (CATH LAB) 800 MCG IA (09:38)
[2023-02-19] MEDS: LIDOCAINE 1% 10ML MDV 20 ML IJ (09:38)
[2023-02-19] MEDS: FENTANYL 100MCG/2ML VIAL 25 MCG IV (10:09)
[2023-02-19] MEDS: MIDAZOLAM HCL 1MG/1ML 5ML VIAL 1 MG IV (10:09)
[2023-02-19] MEDS: CLOPIDOGREL 300MG TABLET 600 MG PO (10:30)
[2023-02-19 10:51] LABS: CATHL Activated Clotting Time 395 SEC (74-125)
[2023-02-19] MEDS: IOPAMIDOL-370 (76%);100ML BOTTLE 130 ML IV (10:53)
== END 2023-02-19 14:45 | disposition home or self-care (01) ==
PROVIDERS: PCP Emergency Medicine; Visit Provider Internal Medicine
DX: I25.118 Atherosclerotic heart disease of native coronary artery with other forms of angina pectoris (principal); E78.5 Hyperlipidemia, unspecified; F17.210 Nicotine dependence, cigarettes, uncomplicated; I10 Essential (primary) hypertension; I25.2 Old myocardial infarction; Z86.73 Personal history of transient ischemic attack (TIA), and cerebral infarction without residual deficits
CPT/HCPCS: 80048; 85025; 85347; 92928; 93454; 99152; 99153; C1725; C1760; C1769; C1874; C1876; C9600; J1644; Q9967

== ENCOUNTER 2023-03-20 12:03 | Day surgery (SDC) | payer OTHER, SELFPAY ==
[2023-03-20 12:07] VITALS: BMI 33.6
[2023-03-20 12:17] VITALS: BP 112/74; PULSE 60; RESP 18; TEMP 36.9; O2SAT 97
[2023-03-20 12:21] VITALS: PULSE 60
[2023-03-20] MEDS: CEFAZOLIN SODIUM 1 GM in 0.9 % SODIUM CHLORIDE 50 ML IV (12:38)
[2023-03-20] MEDS: LIDOCAINE 2% W/EPI 1:100,000 20ML VIAL 20 ML SQ (12:39)
[2023-03-20 12:45] VITALS: BP 107/62; PULSE 58; PULSE 62; RESP 18; O2SAT 97
[2023-03-20 12:50] VITALS: BP 112/64; PULSE 63; RESP 18; O2SAT 98
--- NOTE | 2023-03-20 12:59 | EXP.LOOP ---
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 After informed consent obtained, 1% lidocaine with epinephrine was used to anesthetize the site along the left anterior aspect of the chest near the sternal border. Using the preformed scalpel, an incision was made and using the supplied preloaded apparatus, the loop recorder was placed subcutaneously without difficulty. Following the deployment of the loop recorder interrogation of the device was performed to ensure appropriate voltage was being detected. Once this was verified, Steri-Strips were placed over the incision and the patient was prepped to discharge home. Patient tolerated the procedure well with minimal discomfort. Impression:: Successful implantation of loop recorder Serial Number:: [id number].t-IQ EL plus Model number [id number] Serial #[id number] Plan:: Routine postop care
== END 2023-03-20 13:00 | disposition home or self-care (01) ==
PROVIDERS: PCP Internal Medicine; Visit Provider Internal Medicine
DX: I65.23 Occlusion and stenosis of bilateral carotid arteries (principal); I25.118 Atherosclerotic heart disease of native coronary artery with other forms of angina pectoris; I10 Essential (primary) hypertension; Z86.73 Personal history of transient ischemic attack (TIA), and cerebral infarction without residual deficits; Z79.01 Long term (current) use of anticoagulants; Z79.899 Other long term (current) drug therapy; Z95.1 Presence of aortocoronary bypass graft; I25.2 Old myocardial infarction
CPT/HCPCS: 33285; C1764

== ENCOUNTER 2023-03-27 21:08 | Outpatient (CLI) | payer OTHER, SELFPAY | END 2023-03-27 23:59 | LOC: LAB.DROPOF 21:08 | PROVIDERS: PCP Nurse Practitioner Family; Visit Provider Nurse Practitioner Family | DX: N39.0 Urinary tract infection, site not specified (principal) | CPT/HCPCS: 87086 ==

== ENCOUNTER 2023-08-22 10:07 | Outpatient (CLI) | payer OTHER, SELFPAY ==
--- NOTE | 2023-08-22 10:11 | US_ITS ---
FINAL REPORT CLINICAL HISTORY: to rule out AAA COMPARISON: None FINDINGS: Sonographic images were obtained of the abdominal aorta. Much of the aorta is not visualized secondary to overlying bowel gas and patient body habitus. The abdominal aorta measures up to 2.1 in greatest dimensions. The common iliac arteries are not well-seen.. IMPRESSION: No evidence of aortic aneurysm, although much of the aorta is not visualized. If clinically indicated, CT could be performed for better evaluation of the abdominal aorta. Reviewed, Interpreted and Dictated by Ascencion Griffith III, MD Transcribed by Raisa Sanches Authenticated and [facility]
== END 2023-08-22 23:59 | disposition home or self-care (01) ==
LOC: RAD 10:08
PROVIDERS: Visit Provider Physician Assistant
DX: I25.118 Atherosclerotic heart disease of native coronary artery with other forms of angina pectoris (principal); R60.9 Edema, unspecified; I73.9 Peripheral vascular disease, unspecified; R00.2 Palpitations; Z86.73 Personal history of transient ischemic attack (TIA), and cerebral infarction without residual deficits; I65.23 Occlusion and stenosis of bilateral carotid arteries; I25.2 Old myocardial infarction; E66.9 Obesity, unspecified; Z68.32 Body mass index [BMI] 32.0-32.9, adult; F17.210 Nicotine dependence, cigarettes, uncomplicated
CPT/HCPCS: 76705

== ENCOUNTER 2024-06-25 14:30 | Emergency (ER) | payer OTHER, SELFPAY ==
[2024-06-25] VITALS (7 sets, daily range): BP systolic 125–169; BP diastolic 70–124; PULSE 66–101; RESP 12–18; TEMP 36.8; O2SAT 92–100; BMI 34.9
--- NOTE | 2024-06-25 14:33 | ECG_ITS ---
APPROVED REPORT Exam: Resting ECG HR:99 bpm ECG Measurements Heart Rate 99 AXES [place] 176 P 67 QRSd 91 QRS 71 QT 350 T 69 QTc 406 Conclusion SINUS RHYTHM NONSPECIFIC T-WAVE ABNORMALITY BORDERLINE ECG No STEMI Electronically signed by : DAVID SMITH, 06/26/2024 23:35:52
--- NOTE | 2024-06-25 14:35 | XR_ITS ---
FINAL REPORT CLINICAL HISTORY: Shortness of breath, chest pain COMPARISON: None FINDINGS: The heart size is normal. Loop recorder is present in the left hemithorax. The mediastinum is otherwise normal. There is no focal infiltrate or edema. There are no pleural effusions. There is no pneumothorax. There is no osseous abnormality. IMPRESSION: No acute cardiopulmonary process Reviewed, Interpreted and Dictated by José Waggoner MD Transcribed by Nikky Montemayor Authenticated and [facility]
[2024-06-25 14:48] LABS: Basophils # 0.1 K/mm3 (0-0.2); Basophils % 0.8 % (0.1-2.0); Eosinophils # 0.2 Kmm3 (0.0-0.4); Eosinophils % 2.1 % (0.1-12.0); Hematocrit 42.3 % (37.0-47.0); Hemoglobin 13.1 g/dL (12.2-16.2); Immature Granulocytes # 0.01 10^3uL; Immature Granulocytes % 0.1 %; Lymphocytes # 2.4 K/mm3 (0.7-4.5); Mean Corpuscular Hemoglobin 29.6 pg (27.0-31.2); Mean Corpuscular Volume 95.7 fl (81-99); Mean Platelet Volume 9.6 fl (7.4-10.4); Monocytes # 0.4 K/mm3 (0.1-1.0); Neutrophils # 5.8 K/mm3 (1.8-7.8); Nucleated Red Blood Cells # 0 10^3/uL; Nucleated Red Blood Cells % 0 %; Platelet Count 318 K/mm3 (142-424); Red Blood Count 4.42 M/mm3 (4.20-5.40); Red Cell Distribution Width 13.8 % (11.5-17.5); Red Cell Distribution Width-SD 48.9 fL; White Blood Count 8.7 K/mm3 (4.8-10.8)
--- NOTE | 2024-06-25 14:50 | ED_ITS ---
<Statement entered by Vee Mcclure DO - 06/26/24 00:45> I was consulted by the NABEEL, and we discussed the complexity of the problems being addressed. I approved the treatment and management plan for this patient's care in the emergency department, thus performing a substantive portion of the medical decision making. Vee Mcclure DO Discharge Plan Disposition Patient Disposition: Home, Self-Care Condition: Good Prescriptions Prescriptions: No Action atorvastatin 80 mg tablet 80 mg PO HS gabapentin 300 mg capsule 600 mg PO DAILY Patient Comments: TAKE 2 CAPSULES BY MOUTH DAILY cyclobenzaprine 5 mg tablet PO TID aspirin 81 mg tablet,chewable 1 tab PO DAILY Patient Comments: take 1 tab chewed in the mouth daily bisoprolol fumarate 5 mg tablet 2.5 mg PO BID Qty: 180 3RF albuterol sulfate 90 mcg/actuation HFA aerosol inhaler 2 inh inhalation QID PRN (Reason: shortness of breath or wheezing) 90 Days Qty: 8.5 2RF montelukast [Singulair] 10 mg tablet 10 mg PO DAILY Qty: 90 2RF calcium carbonate-vitamin D3 [Calcium 600 with Vitamin D3] 600 mg-12.5 mcg (500 unit) capsule 1 cap PO DAILY Qty: 30 0RF bupropion HCl 150 mg tablet sustained-release 12 hr 150 mg PO BID Qty: 180 0RF ergocalciferol (vitamin D2) 1,250 mcg (50,000 unit) capsule See Rx Instructions .ROUTE .COMPLEX Qty: 5 0RF Dose Instruction: TAKE 1 CAPSULE BY MOUTH WEEKLY Rx Instructions: TAKE 1 CAPSULE BY MOUTH WEEKLY pantoprazole 40 mg tablet,delayed release (DR/EC) 40 mg PO DAILY Qty: 90 0RF alendronate 70 mg tablet See Rx Instructions .ROUTE .COMPLEX Qty: 8 0RF Dose Instruction: TAKE 1 TABLET BY MOUTH ONCE WEEKLY Rx Instructions: TAKE 1 TABLET BY MOUTH ONCE WEEKLY lisinopril 40 mg tablet 40 mg PO DAILY Qty: 90 3RF amlodipine 10 mg tablet 10 mg PO DAILY Qty: 90 3RF clopidogrel [Plavix] 75 mg tablet 75 mg PO DAILY 90 Days Qty: 90 3RF Referrals Follow up/Referrals: Farshad Winter MD [Staff Physician] - See instructions (Please follow-up in the clinic in the a.m around [address] Winter's office) Provider,Referral, MD [Primary Care Provider] - See instructions Clinical Impressions Clinical Impression: Typical angina, Dyspnea on exertion CAD (coronary artery disease) Qualifiers: Coronary Disease-Associated Artery/Lesion type: [place] artery [place] vs. transplanted heart: [place] heart Associated angina: with other forms of angina Q ualified Code(s): I25.118 - Atherosclerotic heart disease of [place] coronary artery with other forms of angina pectoris Print Language Print Language: Setswana Discharge ED Provider: Vee Mcclure HPI <DONNA Arora - Last Filed: 06/25/24 18:02> General Chief Complaint: Chest Pain Stated Complaint: CHEST PAIN Time Seen by Provider: 06/25/24 14:35 Mode of Arrival: Wheelchair Source of Information: Patient Description of Symptoms (Recalled from ER Triage Doc. by RN): Pt presents for evaluation of chest pain x 2 days. Pt states she has a loop recorder and the cardiology clinic said it looked like she has been in a-fib. Pt states she has a hx of MA and this chest pain feels similiar to that. History of Present Illness HPI narrative: 58-year-old female presents to the emergency department with right-sided substernal chest pain that is nonradiating, patient states that she has had chest pain on and off for quite some time, worsened within the last 2 days and especially this morning when she rated her chest pain a 10 out of 10 , currently a 6 out of 10 , she has any real shortness of breath fever chills, admits to nausea and vomiting yesterday several episodes, none today, no abdominal pain, no constipation no diarrhea no melena no hematochezia no hemoptysis, and no hematemesis, no urinary type symptomatology. Patient is a current everyday smoker, history of TIA/CVA, coronary artery disease status post 5 stent placements, she follows with cardiology here at the hospital, previously on anticoagulation therapy with Eliquis, recently taken off, she has data deficient history of A-fib , but she states that she no longer takes medication for this, she has implantable loop recorder, and is on dual antiplatelet therapy of Plavix and aspirin, peripheral vascular disease, vitamin B12 deficiency, COPD, ICA stenosis, degenerative disease of spine, hyperlipidemia, osteopenia/osteoporosis, GERD, hypertension. Triage vitals noted for tachycardia. MD complaint: chest pain Onset (ago): day(s) Duration: intermittent Activity at onset: during rest Pain location: substernal and right chest Severity: moderate Severity scale (1-10): 6 Related Data Home Medications ?Medication ?Instructions ?Recorded ?Confirmed atorvastatin 80 mg tablet 80 mg PO HS 07/04/22 06/26/24 gabapentin 300 mg capsule 600 mg PO DAILY 11/23/22 06/26/24 cyclobenzaprine 5 mg tablet mg PO TID 04/10/23 06/26/24 aspirin 81 mg chewable tablet 1 tab PO DAILY 08/13/23 06/26/24 Previous Rx's ?Medication ?Instructions ?Recorded albuterol sulfate 90 mcg/actuation 2 inh inhalation QID PRN shortness 08/08/22 aerosol inhaler of breath or wheezing 90 days #8.5 grams calcium 600 mg (as 1 cap PO DAILY #30 caps 09/20/22 carbonate)-vitamin D3 12.5 mcg (500 unit) capsule (Calcium with Vit D3) bupropion HCl 150 mg tablet,12 hr 150 mg PO BID Depression #180 ea 10/08/22 sustained-release ergocalciferol (vitamin D2) 1,250 See Rx Instructions .Route 12/03/22 mcg (50,000 unit) capsule .COMPLEX #5 caps montelukast 10 mg tablet 10 mg PO DAILY #90 tabs 01/10/23 (Singulair) pantoprazole 40 mg tablet,delayed 40 mg PO DAILY #90 tabs 02/19/23 release alendronate 70 mg tablet See Rx Instructions .Route 03/27/23 .COMPLEX #8 tabs bisoprolol fumarate 5 mg tablet 2.5 mg (1/2 x 5 mg) PO BID #180 08/13/23 tabs lisinopril 40 mg tablet 40 mg PO DAILY #90 tabs 10/03/23 amlodipine 10 mg tablet 10 mg PO DAILY hypertension #90 03/13/24 tabs clopidogrel 75 mg tablet (Plavix) 75 mg PO DAILY 90 days #90 tabs 03/13/24 Allergies Allergy/AdvReac Type Severity Reaction Status Date / Time erythromycin base Allergy Mild Rash Verified 06/26/24 08:07 [facility] <DONNA Arora - Last Filed: 06/25/24 18:02> [facility] Disclaimer: The information contained in this section may have been updated after the patient was seen, as this information can be updated by other users. Medical History History of myocardial infarction 08/22/2018, non-STEMI, 2 drug-eluting stents circumflex coronary artery, [facility] DDD (degenerative disc disease), lumbar Encounter for screening for malignant neoplasm of lung COPD mixed type Smoking greater than 30 pack years Dyspnea on exertion Surgical History History of surgery on lower extremity History of heart artery stent Family History Other Diabetes Hypertension Social History Smoking Status: Never smoker alcohol intake: current alcohol intake frequency: holidays/special occasions only substance use type: denies use current occupational status: other Travel in the last 8 weeks?: None Other Medical History Have you received the Flu Vaccine for this season: No Have you received the Pneumonia Vaccine: No <DONNA Arora - Last Filed: 06/25/24 18:02> ROS Obtained: Yes All systems reviewed & no additional complaints except as documented Physical Exam <DONNA Arora - Last Filed: 06/25/24 18:02> General General appearance: alert and in no apparent distress Head Head exam: atraumatic and normocephalic Eye Eye exam: Present PERRL and EOMI ENT ENT exam: Present mucous membranes moist Neck Neck exam: Present normal inspection Chest Chest inspection: Present normal inspection and symmetric chest wall rise Respiratory Respiratory exam: Present normal lung sounds bilaterally, wheezes and other (Mild diffuse wheezes throughout bilateral lung morales); Absent respiratory distress Cardiovascular Cardiovascular exam: Present normal rhythm and tachycardia Abdominal Exam Abdominal exam: Present soft; Absent tenderness, guarding, rebound or rigidity Extremities Exam Extremities exam: Present normal inspection Neurological Exam Neurological exam: Present alert and oriented X3 Psychiatric Psychiatric exam: Present normal affect Skin Skin exam: Present warm and dry HEART Score <DONNA Arora - Last Filed: 06/25/24 18:02> HEART Score HEART Score assessment performed?: Yes HEART Score: 3 <Zack Fournier MD - Last Filed: 06/26/24 08:21> HEART Score History (anamnesis): Moderately suspicious ECG: Normal Age: 45-65 years Risk factors: 3 or more risk factors Troponin: </= normal limit HEART Score: 4 Critical Care <DONNA Arora - Last Filed: 06/25/24 18:02> Critical Care Time Critical Care Time: No Medical Decision Making <DONNA Arora - Last Filed: 06/25/24 18:02> Medical Records Medical records reviewed: Yes I reviewed the patient's medical records. Herbert Inquiry Pt receiving controlled substance: Yes Herbert was queried for this patient: No Reason not queried -: Emergent pt cond-no time Risks and benefits of using a controlled substance: were discussed with pt by me Vital Signs Vital Signs: 06/25/24 14:33 06/25/24 15:30 06/25/24 16:30 Temperature 98.2 F Temperature Source Oral Pulse Rate 79 75 Pulse Rate [Right] 101 H Respiratory Rate 18 14 12 Blood Pressure 125/78 140/78 Blood Pressure [Right Arm] 169/105 H Blood Pressure Mean [Right Arm] 126 Blood Pressure Source [Right Arm] Automatic Cuff Blood Pressure Position [Right Arm] Sitting 02 Sat by Pulse Oximetry 92 L 95 100 Oxygen Delivery Method Room Air Room Air 06/25/24 17:00 06/25/24 17:31 06/25/24 18:01 Temperature Temperature Source Pulse Rate 66 75 80 Pulse Rate [Right] Respiratory Rate 15 12 Blood Pressure 131/70 145/124 H 149/75 H Blood Pressure [Right Arm] Blood Pressure Mean [Right Arm] Blood Pressure Source [Right Arm] Blood Pressure Position [Right Arm] 02 Sat by Pulse Oximetry 100 100 99 Oxygen Delivery Method Room Air Room Air Room Air 06/25/24 18:03 Temperature 98.2 F Temperature Source Pulse Rate 78 Pulse Rate [Right] Respiratory Rate 14 Blood Pressure 149/75 H Blood Pressure [Right Arm] Blood Pressure Mean [Right Arm] Blood Pressure Source [Right Arm] Blood Pressure Position [Right Arm] 02 Sat by Pulse Oximetry Oxygen Delivery Method Lab Data Labs: Lab Results 06/25/24 14:35: WBC 8.7, RBC 4.42, Hgb 13.1, Hct 42.3, MCV 95.7, MCH 29.6, MCHC 31.0 L, RDW 13.8, Plt Count 318, MPV 9.6, Neut % (Auto) 66.0, Lymph % (Auto) 27.0, Mcdonough % (Auto) 4.0, Eos % (Auto) 2.1, Baso % (Auto) 0.8, Neut # (Auto) 5.8, Lymph # (Auto) 2.4, Mcdonough # (Auto) 0.4, Eos # (Auto) 0.2, Baso # (Auto) 0.1, PT 10.1, INR 0.89 L, D-Dimer 0.92 H, Sodium 138, Potassium 3.7, Chloride 101, C arbon Dioxide 33 H, Anion Gap 7.7, BUN 11, Creatinine 1.10 H, Estimated Creat Clear 71, Estimated GFR 51 L, Est GFR ( Amer) 62, Glucose 120 H, Calcium 9.2, Total Bilirubin 0.6, AST 42 H, ALT 29, Alkaline Phosphatase 94, Total Creatine Kinase 347 H, Troponin I < 0.01, NT-Pro-B Natriuret Pep 108, Total Protein 7.5, Albumin 4.6, Globulin 2.9, Albumin/Globulin Ratio 1.6, Lipase 16 L 06/25/24 16:40: Troponin I < 0.01 06/25/24 14:35 06/25/24 14:35 Response Orders (Tests/Meds): ED MEDICATIONS Discontinued Medications Generic Name Dose Route Start Last Admin Trade Name Dorie PRN Reason Stop Dose Admin Iopamidol 70 ml 06/25/24 15:58 06/25/24 15:59 Iopamidol-370 (76%);100ml Bottle IV 06/25/24 15:59 70 ml ONCE ONE Administration Morphine Sulfate 4 mg 06/25/24 14:49 06/25/24 15:13 Morphine 4mg/Ml Syringe IV 06/25/24 14:50 4 mg ONCE ONE Administration Nitroglycerin 0.4 mg 06/25/24 14:53 06/25/24 15:13 Nitroglycerin 0.4mg Sl Tablet SL 06/25/24 14:54 0.4 mg ONCE ONE Administration Ondansetron HCl 4 mg 06/25/24 14:49 06/25/24 15:13 Ondansetron 4mg/2ml Vial IV 06/25/24 14:50 4 mg ONCE ONE Administration Sodium Chloride 50 ml 06/25/24 15:58 06/25/24 15:59 0.9 % Sodium Chloride 50 Ml Vial IV 06/25/24 15:59 50 ml ONCE ONE Administration Sodium Chloride 10 ml 06/25/24 15:58 06/25/24 15:59 Sodium Chloride 0.9% 10ml Syr (Rad Only) IV 06/25/24 15:59 10 ml ONCE ONE Administration ORDERS Category Date Time Status CT angio chest PE protocol Stat Cat Scan 06/25/24 15:49 Completed XR chest portable Stat Exams 06/25/24 14:35 Completed CK [Creatine Kinase] Stat Lab 06/25/24 14:35 Completed Complete Blood Count Auto Diff Stat Lab 06/25/24 14:35 Completed Comprehensive Metabolic Panel Stat Lab 06/25/24 14:35 Completed D-Dimer Stat Lab 06/25/24 14:35 Completed Lipase Stat Lab 06/25/24 14:35 Completed NT Pro Brain Natriuretic Pep. Stat Lab 06/25/24 14:35 Completed PT INR [Prothrombin Time INR] Stat Lab 06/25/24 14:35 Completed Troponin I Q3H Lab 06/25/24 16:40 Completed Troponin I Stat Lab 06/25/24 14:35 Completed MDM Narrative Medical Decision Narrative: 58-year-old female presents to the emergency department with chest pain, differential diagnose include but not limited to, ACS, cardiac arrhythmia, electrolyte disturbance, PE, costochondritis, pneumonia, gastritis, GERD, panic attack, anxiety type reaction, COPD exacerbation among others. Discussed this patient's case with attending physician Dr. Mcclure Will obtain basic laboratory studies, D-dimer, troponin, proBNP, chest x-ray, EKG, creatinine kinase level, coagulation studies, will give 4 mg IV Zofran for nausea and 4 mg IV morphine for pain, 0.4 mg nitro CBC unremarkable Creatinine is minimally elevated 1.1, hypercapnia at 33 which is minimal, CK is elevated at 347, Initial troponin is less than 0.01, proBNP within normal limits D-dimer is elevated at 0.92, will obtain CTA chest with without contrast PE protocol. PT/INR within normal limits Of note I was notified by nursing staff at approximately 4:18 PM that the patient had an episode of hypoxia where she dropped into the low 80s and 75 SPO2, was placed on 2 L nasal cannula responded appropriately. I reviewed the patient's chest x-ray along with corresponding radiologic report no acute cardiopulmonary process. I reviewed the patient's CTA chest with and without contrast PE protocol, no PE there are atherosclerotic changes of the vasculature. I discussed this patient's case with on-call senior test analyst/patient's senior test analyst Dr. Winter 5:25 PM, he reviewed the patient's EKGs, he states that if patient not willing to stay for cardiac observation can be seen in the outpatient clinic tomorrow a.m., pending repeat troponin and clinical course. Repeat troponin is less than 0.01. Reexamination of the patient at approximately 5:50 PM, patient's chest pain is a 0 out of 10, much improvement of her symptomatology, no longer requiring oxygen, patient will follow-up with the senior test analyst in the a.m., heart score is a 3 - 4, did offer cardiac observation to the patient based on heart score of 4, patient denied at this time, shared decision-making was utilized would like to follow-up with cardiology as outpatient in the a.m. Patient and family voiced understanding and agree with current treatment plan/discharge plan, strict ED return precautions are given. Patient voiced understanding agreement with the current treatment plan/discharge plan. <Vee Mcclure, DO - Last Filed: 06/25/24 17:06> Vital Signs Vital Signs: 06/25/24 14:33 06/25/24 15:30 06/25/24 16:30 Temperature 98.2 F Temperature Source Oral Pulse Rate 79 75 Pulse Rate [Right] 101 H Respiratory Rate 18 14 12 Blood Pressure 125/78 140/78 Blood Pressure [Right Arm] 169/105 H Blood Pressure Mean [Right Arm] 126 Blood Pressure Source [Right Arm] Automatic Cuff Blood Pressure Position [Right Arm] Sitting 02 Sat by Pulse Oximetry 92 L 95 100 Oxygen Delivery Method Room Air Room Air 06/25/24 17:00 06/25/24 17:31 06/25/24 18:01 Temperature Temperature Source Pulse Rate 66 75 80 Pulse Rate [Right] Respiratory Rate 15 12 Blood Pressure 131/70 145/124 H 149/75 H Blood Pressure [Right Arm] Blood Pressure Mean [Right Arm] Blood Pressure Source [Right Arm] Blood Pressure Position [Right Arm] 02 Sat by Pulse Oximetry 100 100 99 Oxygen Delivery Method Room Air Room Air Room Air 06/25/24 18:03 Temperature 98.2 F Temperature Source Pulse Rate 78 Pulse Rate [Right] Respiratory Rate 14 Blood Pressure 149/75 H Blood Pressure [Right Arm] Blood Pressure Mean [Right Arm] Blood Pressure Source [Right Arm] Blood Pressure Position [Right Arm] 02 Sat by Pulse Oximetry Oxygen Delivery Method Lab Data Labs: Lab Results 06/25/24 14:35: WBC 8.7, RBC 4.42, Hgb 13.1, Hct 42.3, MCV 95.7, MCH 29.6, MCHC 31.0 L, RDW 13.8, Plt Count 318, MPV 9.6, Neut % (Auto) 66.0, Lymph % (Auto) 27.0, Mcdonough % (Auto) 4.0, Eos % (Auto) 2.1, Baso % (Auto) 0.8, Neut # (Auto) 5.8, Lymph # (Auto) 2.4, Mcdonough # (Auto) 0.4, Eos # (Auto) 0.2, Baso # (Auto) 0.1, PT 10.1, INR 0.89 L, D-Dimer 0.92 H, Sodium 138, Potassium 3.7, Chloride 101, C arbon Dioxide 33 H, Anion Gap 7.7, BUN 11, Creatinine 1.10 H, Estimated Creat Clear 71, Estimated GFR 51 L, Est GFR ( Amer) 62, Glucose 120 H, Calcium 9.2, Total Bilirubin 0.6, AST 42 H, ALT 29, Alkaline Phosphatase 94, Total Creatine Kinase 347 H, Troponin I < 0.01, NT-Pro-B Natriuret Pep 108, Total Protein 7.5, Albumin 4.6, Globulin 2.9, Albumin/Globulin Ratio 1.6, Lipase 16 L 06/25/24 16:40: Troponin I < 0.01 Response Orders (Tests/Meds): ED MEDICATIONS Discontinued Medications Generic Name Dose Route Start Last Admin Trade Name Freq PRN Reason Stop Dose Admin Iopamidol 70 ml 06/25/24 15:58 06/25/24 15:59 Iopamidol-370 (76%);100ml Bottle IV 06/25/24 15:59 70 ml ONCE ONE Administration Morphine Sulfate 4 mg 06/25/24 14:49 06/25/24 15:13 Morphine 4mg/Ml Syringe IV 06/25/24 14:50 4 mg ONCE ONE Administration Nitroglycerin 0.4 mg 06/25/24 14:53 06/25/24 15:13 Nitroglycerin 0.4mg Sl Tablet SL 06/25/24 14:54 0.4 mg ONCE ONE Administration Ondansetron HCl 4 mg 06/25/24 14:49 06/25/24 15:13 Ondansetron 4mg/2ml Vial IV 06/25/24 14:50 4 mg ONCE ONE Administration Sodium Chloride 50 ml 06/25/24 15:58 06/25/24 15:59 0.9 % Sodium Chloride 50 Ml Vial IV 06/25/24 15:59 50 ml ONCE ONE Administration Sodium Chloride 10 ml 06/25/24 15:58 06/25/24 15:59 Sodium Chloride 0.9% 10ml Syr (Rad Only) IV 06/25/24 15:59 10 ml ONCE ONE Administration ORDERS Category Date Time Status CT angio chest PE protocol Stat Cat Scan 06/25/24 15:49 Completed XR chest portable Stat Exams 06/25/24 14:35 Completed CK [Creatine Kinase] Stat Lab 06/25/24 14:35 Completed Complete Blood Count Auto Diff Stat Lab 06/25/24 14:35 Completed Comprehensive Metabolic Panel Stat Lab 06/25/24 14:35 Completed D-Dimer Stat Lab 06/25/24 14:35 Completed Lipase Stat Lab 06/25/24 14:35 Completed NT Pro Brain Natriuretic Pep. Stat Lab 06/25/24 14:35 Completed PT INR [Prothrombin Time INR] Stat Lab 06/25/24 14:35 Completed Troponin I Q3H Lab 06/25/24 16:40 Completed Troponin I Stat Lab 06/25/24 14:35 Completed ECG Data Tracing #1: Attestation: I reviewed this ECG and interpreted as documented below: ECG Narrative: Normal sinus rhythm with a ventricular rate of [address] changes concerning for ischemia. Normal intervals ECG initial impression date: 06/25/24 ECG initial impression time: 16:58 <Zack Fournire MD - Last Filed: 06/26/24 08:21> Vital Signs Vital Signs: 06/25/24 14:33 06/25/24 15:30 06/25/24 16:30 Temperature 98.2 F Temperature Source Oral Pulse Rate 79 75 Pulse Rate [Right] 101 H Respiratory Rate 18 14 12 Blood Pressure 125/78 140/78 Blood Pressure [Right Arm] 169/105 H Blood Pressure Mean [Right Arm] 126 Blood Pressure Source [Right Arm] Automatic Cuff Blood Pressure Position [Right Arm] Sitting 02 Sat by Pulse Oximetry 92 L 95 100 Oxygen Delivery Method Room Air Room Air 06/25/24 17:00 06/25/24 17:31 06/25/24 18:01 Temperature Temperature Source Pulse Rate 66 75 80 Pulse Rate [Right] Respiratory Rate 15 12 Blood Pressure 131/70 145/124 H 149/75 H Blood Pressure [Right Arm] Blood Pressure Mean [Right Arm] Blood Pressure Source [Right Arm] Blood Pressure Position [Right Arm] 02 Sat by Pulse Oximetry 100 100 99 Oxygen Delivery Method Room Air Room Air Room Air 06/25/24 18:03 Temperature 98.2 F Temperature Source Pulse Rate 78 Pulse Rate [Right] Respiratory Rate 14 Blood Pressure 149/75 H Blood Pressure [Right Arm] Blood Pressure Mean [Right Arm] Blood Pressure Source [Right Arm] Blood Pressure Position [Right Arm] 02 Sat by Pulse Oximetry Oxygen Delivery Method Lab Data Labs: Lab Results 06/25/24 14:35: WBC 8.7, RBC 4.42, Hgb 13.1, Hct 42.3, MCV 95.7, MCH 29.6, MCHC 31.0 L, RDW 13.8, Plt Count 318, MPV 9.6, Neut % (Auto) 66.0, Lymph % (Auto) 27.0, Mcdonough % (Auto) 4.0, Eos % (Auto) 2.1, Baso % (Auto) 0.8, Neut # (Auto) 5.8, Lymph # (Auto) 2.4, Mcdonough # (Auto) 0.4, Eos # (Auto) 0.2, Baso # (Auto) 0.1, PT 10.1, INR 0.89 L, D-Dimer 0.92 H, Sodium 138, Potassium 3.7, Chloride 101, C arbon Dioxide 33 H, Anion Gap 7.7, BUN 11, Creatinine 1.10 H, Estimated Creat Clear 71, Estimated GFR 51 L, Est GFR ( Amer) 62, Glucose 120 H, Calcium 9.2, Total Bilirubin 0.6, AST 42 H, ALT 29, Alkaline Phosphatase 94, Total Creatine Kinase 347 H, Troponin I < 0.01, NT-Pro-B Natriuret Pep 108, Total Protein 7.5, Albumin 4.6, Globulin 2.9, Albumin/Globulin Ratio 1.6, Lipase 16 L 06/25/24 16:40: Troponin I < 0.01 Response Orders (Tests/Meds): ED MEDICATIONS Discontinued Medications Generic Name Dose Route Start Last Admin Trade Name Dorie PRN Reason Stop Dose Admin Iopamidol 70 ml 06/25/24 15:58 06/25/24 15:59 Iopamidol-370 (76%);100ml Bottle IV 06/25/24 15:59 70 ml ONCE ONE Administration Morphine Sulfate 4 mg 06/25/24 14:49 06/25/24 15:13 Morphine 4mg/Ml Syringe IV 06/25/24 14:50 4 mg ONCE ONE Administration Nitroglycerin 0.4 mg 06/25/24 14:53 06/25/24 15:13 Nitroglycerin 0.4mg Sl Tablet SL 06/25/24 14:54 0.4 mg ONCE ONE Administration Ondansetron HCl 4 mg 06/25/24 14:49 06/25/24 15:13 Ondansetron 4mg/2ml Vial IV 06/25/24 14:50 4 mg ONCE ONE Administration Sodium Chloride 50 ml 06/25/24 15:58 06/25/24 15:59 0.9 % Sodium Chloride 50 Ml Vial IV 06/25/24 15:59 50 ml ONCE ONE Administration Sodium Chloride 10 ml 06/25/24 15:58 06/25/24 15:59 Sodium Chloride 0.9% 10ml Syr (Rad Only) IV 06/25/24 15:59 10 ml ONCE ONE Administration ORDERS Category Date Time Status CT angio chest PE protocol Stat Cat Scan 06/25/24 15:49 Completed XR chest portable Stat Exams 06/25/24 14:35 Completed CK [Creatine Kinase] Stat Lab 06/25/24 14:35 Completed Complete Blood Count Auto Diff Stat Lab 06/25/24 14:35 Completed Comprehensive Metabolic Panel Stat Lab 06/25/24 14:35 Completed D-Dimer Stat Lab 06/25/24 14:35 Completed Lipase Stat Lab 06/25/24 14:35 Completed NT Pro Brain Natriuretic Pep. Stat Lab 06/25/24 14:35 Completed PT INR [Prothrombin Time INR] Stat Lab 06/25/24 14:35 Completed Troponin I Q3H Lab 06/25/24 16:40 Completed Troponin I Stat Lab 06/25/24 14:35 Completed MDM Narrative Medical Decision Narrative: 58-year-old female presents to the emergency department with chest pain, differential diagnose include but not limited to, ACS, cardiac arrhythmia, electrolyte disturbance, PE, costochondritis, pneumonia, gastritis, GERD, panic attack, anxiety type reaction, COPD exacerbation among others. Discussed this patient's case with attending physician Dr. Mcclure Will obtain basic laboratory studies, D-dimer, troponin, proBNP, chest x-ray, EKG, creatinine kinase level, coagulation studies, will give 4 mg IV Zofran for nausea and 4 mg IV morphine for pain, 0.4 mg nitro CBC unremarkable Creatinine is minimally elevated 1.1, hypercapnia at 33 which is minimal, CK is elevated at 347, Initial troponin is less than 0.01, proBNP within normal limits D-dimer is elevated at 0.92, will obtain CTA chest with without contrast PE protocol. PT/INR within normal limits Of note I was notified by nursing staff at approximately 4:18 PM that the patient had an episode of hypoxia where she dropped into the low 80s and 75 SPO2, was placed on 2 L nasal cannula responded appropriately. I reviewed the patient's chest x-ray along with corresponding radiologic report no acute cardiopulmonary process. I reviewed the patient's CTA chest with and without contrast PE protocol, no PE there are atherosclerotic changes of the vasculature. I discussed this patient's case with on-call senior test analyst/patient's senior test analyst Dr. Winter 5:25 PM, he reviewed the patient's EKGs, he states that if patient not willing to stay for cardiac observation can be seen in the outpatient clinic tomorrow a.m., pending repeat troponin and clinical course. Repeat troponin is less than 0.01. Reexamination of the patient at approximately 5:50 PM, patient's chest pain is a 0 out of 10, much improvement of her symptomatology, no longer requiring oxygen, patient will follow-up with the senior test analyst in the a.m., heart score is a 3 - 4, did offer cardiac observation to the patient based on heart score of 4, patient denied at this time, shared decision-making was utilized would like to follow-up with cardiology as outpatient in the a.m. Patient and family voiced understanding and agree with current treatment plan/discharge plan, strict ED return precautions are given. Patient voiced understanding agreement with the current treatment plan/discharge plan. I was consulted by the NABEEL, and we discussed the complexity of the problems being addressed. I approved the treatment and management plan for this patient's care in the Emergency Department, thus performing a substantive portion of the medical decision making. Zack Fournier MD
[2024-06-25 14:59] LABS: Albumin Level 4.6 g/dl (3.5-5.0); Chloride 101 mmol/L (98-107); Sodium 138 mmol/L (136-145)
[2024-06-25 15:00] LABS: Potassium 3.7 mmoL/L (3.5-5.1)
[2024-06-25 15:02] LABS: Alanine Aminotransferase 29 U/L (12-78); Albumin/Globulin Ratio 1.6 (1.1-1.8); Alkaline Phosphatase 94 U/L (38-126); Anion Gap 7.7 mEq/L (5-15); Aspartate Amino Transferase 42 U/L (14-36); Bilirubin,Total 0.6 mg/dl (0.2-1.3); Blood Urea Nitrogen 11 mg/dl (7-17); Calcium 9.2 mg/dl (8.4-10.2); Carbon Dioxide 33 mmol/L (22.0-30.0); Creatine Kinase 347 U/L (30-135); Creatinine Clearance Estimated 71 mL/min (50-200); Estimated Glomerular Filt Rate 51 ml/min (>60); GFR (African American) 62 ML/MIN (>60); Globulin 2.9 g/dL (1.3-3.2); Glucose 120 mg/dl (74-100); Lipase 16 U/L (23-300); Total Protein,Serum 7.5 g/dl (6.3-8.2)
[2024-06-25 15:13] LABS: NT Pro Brain Natriuretic Pep. 108 pg/mL (0-125)
[2024-06-25] MEDS: NITROGLYCERIN 0.4MG SL TABLET 0.4 MG SL (15:13)
[2024-06-25] MEDS: ONDANSETRON 4MG/2ML VIAL 4 MG IV (15:13)
[2024-06-25] MEDS: MORPHINE 4MG/ML SYRINGE 4 MG IV (15:13)
[2024-06-25 15:25] LABS: Troponin I < 0.01 ng/ml (0.00-0.034)
[2024-06-25 15:34] LABS: D-Dimer 0.92 ug/mL (0.0-0.5)
[2024-06-25 15:47] LABS: INR 0.89 (0.9-1.1); Prothrombin Time 10.1 seconds (10.1-12.5)
--- NOTE | 2024-06-25 15:49 | CT_ITS ---
PROCEDURE INFORMATION: Exam: CTA Chest With Contrast Exam date and time: 06/25/2024 3:54 PM Age: 58 years old Clinical indication: Shortness of breath; Additional info: SOA, elevated d-dimer TECHNIQUE: Imaging protocol: Computed tomographic angiography of the chest with contrast. Exam focused on the arteries. 3D rendering (Not supervised by radiologist): MIP and/or 3D reconstructed images were created by the technologist. Radiation optimization: All CT scans at this facility use at least one of these dose optimization techniques: automated exposure control; mA and/or kV adjustment per patient size (includes targeted exams where dose is matched to clinical indication); or iterative reconstruction. Contrast material: ISO 370; Contrast volume: 70 ml; Contrast route: INTRAVENOUS (IV); COMPARISON: CT LUNG SCREENING 10/26/2022 8:51 AM FINDINGS: Pulmonary arteries: Normal. No pulmonary emboli. Aorta: Mild atherosclerotic changes are seen within the thoracic aorta without evidence of aneurysm. Lungs: Unremarkable. No consolidation. No masses. Pleural spaces: Unremarkable. No pneumothorax. No pleural effusion. Heart: Unremarkable. No cardiomegaly. No pericardial effusion. Coronary arteries: Considerable coronary artery calcification. Lymph nodes: Unremarkable. No enlarged lymph nodes. Bones/joints: Unremarkable. No acute fracture. Soft tissues: Unremarkable. IMPRESSION: 1. No PE. 2. Atherosclerotic changes.
[2024-06-25] MEDS: IOPAMIDOL-370 (76%);100ML BOTTLE 70 ML IV (15:59)
[2024-06-25] MEDS: 0.9 % SODIUM CHLORIDE 50 ML VIAL IV (15:59)
[2024-06-25] MEDS: SODIUM CHLORIDE 0.9% 10ML SYR (RAD ONLY) 10 ML IV (15:59)
--- NOTE | 2024-06-25 16:20 | PC.NURSE ---
Pt O2 saturation noted to be 75% on room air. Pt had just returned from radiology. Pt placed on 2L NC, o2 now 92%. Provider notified.
--- NOTE | 2024-06-25 16:54 | ECG_ITS ---
APPROVED REPORT Exam: Resting ECG HR:75 bpm ECG Measurements Heart Rate 75 AXES NC 168 P 64 QRSd 81 QRS 77 QT 400 T 87 QTc 429 Conclusion SINUS RHYTHM NONSPECIFIC ST & T-WAVE ABNORMALITY No STEMI Electronically signed by : DAVID SMITH, 06/26/2024 23:39:04
[2024-06-25 17:48] LABS: Troponin I < 0.01 ng/ml (0.00-0.034)
--- NOTE | 2024-06-25 18:02 | PC.NURSE ---
room air sat on patient is 98% at this time
== END 2024-06-25 18:12 | disposition home or self-care (01) ==
PROVIDERS: Physician Assistant; Emergency Provider Emergency Medicine
DX: R07.89 Other chest pain (principal); R09.02 Hypoxemia; I25.118 Atherosclerotic heart disease of native coronary artery with other forms of angina pectoris; R06.02 Shortness of breath; R11.2 Nausea with vomiting, unspecified; I10 Essential (primary) hypertension; F17.210 Nicotine dependence, cigarettes, uncomplicated
CPT/HCPCS: 71045; 71275; 80053; 82550; 83690; 83880; 84484; 85025; 85378; 85610; 93005; 96374; 96375; 99285; J2270; J2405; Q9967